=== PATIENT | female | born 1945 | race Two or more races ===

== ENCOUNTER 2018-01-21 13:20 | Outpatient (CLI) | payer OTHER ==
[~2018-01-21 13:20] MED LIST: XANAX0.25 MG PO
== END 2018-01-21 13:32 | disposition home or self-care (01) ==
LOC: MRI 13:20
DX: M51.36 Other intervertebral disc degeneration, lumbar region (principal)
CPT/HCPCS: 72148

== ENCOUNTER 2018-06-23 12:31 | Outpatient (CLI) | payer OTHER | END 2018-06-23 13:13 | disposition home or self-care (01) | LOC: MRI 12:31 | DX: R42 Dizziness and giddiness (principal) | CPT/HCPCS: 70551 ==

== ENCOUNTER 2018-07-14 08:58 | Emergency (ER) | payer OTHER ==
[~2018-07-14] VITALS: Ht 167.6 cm; Wt 77.1 kg
[2018-07-14] MEDS ORDERED: NEURONTIN800 MG PO (09:34)
[2018-07-14] MEDS ORDERED: SYNTHROID175 MCG PO (09:34)
[2018-07-14] MEDS ORDERED: XANAX1 MG PO (09:35)
[2018-07-14] MEDS ORDERED: NORVASC2.5 M1 PO (09:35)
[2018-07-14] MEDS ORDERED: MEDROLPACK PO (11:53)
[2018-07-14] MEDS ORDERED: ZITHROMAX TRI-500 MG PO (11:53)
[2018-07-14] MEDS ORDERED: TUSSI PRES-B L120 M1 PO (11:53)
== END 2018-07-14 14:39 | disposition home or self-care (01) ==
LOC: ER 08:58
DX: J11.1 Influenza due to unidentified influenza virus with other respiratory manifestations (principal)